=== PATIENT | female | born 2005 ===

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

== ENCOUNTER → 2024-03-10 | Outpatient (CLI) | payer BC ==
[2024-03-10 16:40] LABS: Microalb/Creat Ratio UR, Rand Unable to Calculate mg/g (0.000-30.000); Microalbumin, Random Urine <5.000 mg/L (0.000-20.000)
== END ==
LOC: LAB SHORT 10:39 → LAB 10:39
PROVIDERS: Family Medicine
DX: E88.09 Other disorders of plasma-protein metabolism, not elsewhere classified (principal)
CPT/HCPCS: 82043; 82570

== ENCOUNTER → 2024-03-16 | Outpatient (CLI) | payer BC | LOC: LAB SHORT 14:52 → LAB 14:52 | DX: R30.0 Dysuria (principal) | CPT/HCPCS: 87086 ==

== ENCOUNTER → 2024-05-27 | Outpatient (CLI) | payer BC | LOC: LAB SHORT 13:27 → LAB 13:27 | DX: R30.0 Dysuria (principal) | CPT/HCPCS: 87086 ==